=== PATIENT | female | born 1990 | race African-American/Black ===

== ENCOUNTER 2016-12-27 17:14 | Inpatient (IN) | payer OTHER ==
[~2016-12-27] VITALS: Ht 167.6 cm; Wt 47.2 kg
[2016-12-27 17:15] VITALS: BP 128/85
[2016-12-27 18:10] LABS: ABSOLUTE NEUTROPHILS 2.6 thou/uL (1.4-8.2); BASOPHILS 0.9 % (0.0-2.0); EOSINOPHILS 0.1 % (0.0-3.0); HEMATOCRIT 40.1 % (37.0-47.0); HEMOGLOBIN 14.3 gm/dL (12.0-15.0); LYMPHOCYTES 21.9 % (24.0-44.0); MCH 31.9 pg (26.0-34.0); MCHC 35.5 g/dL (28.0-37.0); MCV 89.9 fL (80.0-100.0); MONOCYTES 11.2 % (1.0-8.0); PLATELET COUNT 119 thou/uL (150-400); POLYS 65.9 % (36.0-66.0); RBC 4.46 mil/uL (4.20-5.00); RDW 14.2 % (10.5-14.5); WBC 3.9 thou/uL (4.0-11.0)
[2016-12-27 18:10] LABS: URINE BILIRUBIN 1+ (Negative); URINE BLOOD NEGATIVE (Negative); URINE COLOR YELLOW; URINE GLUCOSE-RANDOM* NEGATIVE (Negative); URINE KETONES 2+ (Negative); URINE NITRITE NEGATIVE (Negative); URINE PROTEIN (DIPSTICK) 1+ (Negative); URINE UROBILINOGEN >= 8.0 E.U./dl (0.2-1.0)
[2016-12-27 18:13] LABS: ICTOTEST (BILI CONFIRMATORY) Positive (Negative)
[2016-12-27 18:17] LABS: MANUAL DIFF NO
[2016-12-27 18:20] LABS: SQUAMOUS 0-3 Few /LPF (0-3)
[2016-12-27 18:21] LABS: AMORPHOUS PHOSPHATES Moderate /LPF (None Seen); CASTS None Seen /LPF (None Seen); URINE RBC None Seen /HPF (0-2); URINE WBC 0-5 Rare /HPF (0-5)
[2016-12-27 18:23] LABS: CALCIUM 10.2 mg/dL (8.5-10.1); CREATININE 0.6 mg/dL (0.6-1.0); POTASSIUM 3.4 mmol/L (3.5-5.1)
[2016-12-27 18:29] LABS: TOTAL BILIRUBIN 2.5 mg/dL (<0.1-1.0); TOTAL PROTEIN 7.1 g/dL (6.4-8.2)
[2016-12-27 18:36] LABS: LARGE PLATELETS SEVERAL
[2016-12-27 20:55] VITALS: BP 144/92
[2016-12-28 03:55] VITALS: BP 115/74
[2016-12-28 05:03] LABS: HEMATOCRIT 35.1 % (37.0-47.0); HEMOGLOBIN 12.6 gm/dL (12.0-15.0); MCH 32.4 pg (26.0-34.0); MCHC 35.9 g/dL (28.0-37.0); MCV 90.3 fL (80.0-100.0); RBC 3.88 mil/uL (4.20-5.00); RDW 14.1 % (10.5-14.5); WBC 5.2 thou/uL (4.0-11.0)
[2016-12-28 05:18] LABS: ALBUMIN 3.5 g/dL (3.4-5.0); CALCIUM 9.2 mg/dL (8.5-10.1); CREATININE 0.6 mg/dL (0.6-1.0); MAGNESIUM 1.6 mg/dL (1.8-2.4); POTASSIUM 3.1 mmol/L (3.5-5.1); TOTAL BILIRUBIN 2.2 mg/dL (<0.1-1.0)
[2016-12-28 07:45] VITALS: BP 111/81
[2016-12-28 16:05] VITALS: BP 126/93
[2016-12-28 19:27] VITALS: BP 130/81
[2016-12-29 05:49] VITALS: BP 111/65
[2016-12-29 06:49] LABS: ALBUMIN 3.5 g/dL (3.4-5.0); CREATININE 0.7 mg/dL (0.6-1.0); POTASSIUM 3.1 mmol/L (3.5-5.1); TOTAL BILIRUBIN 2.3 mg/dL (<0.1-1.0); TOTAL PROTEIN 6.4 g/dL (6.4-8.2)
[2016-12-29 07:05] VITALS: BP 1116/75
[2016-12-29] MEDS ORDERED: VITAMIN B-1100 M2 PO (09:56)
[2016-12-29] MEDS ORDERED: FOLIC ACID 1 MG1 MG PO (09:56)
[2016-12-29 11:15] VITALS: BP 1116/75
[2016-12-30 19:11] LABS: HEPATITIS C VIRUS AB <0.1 (0.0-0.9)
== END 2016-12-29 12:01 | disposition home or self-care (01) | DRG 440 ==
LOC: ER 17:14 → EROBS 19:39 → 4S 21:03
PROVIDERS: Hospitalist; Nurse Practitioner; Nurse Practitioner Family
DX: K85.20 Alcohol induced acute pancreatitis without necrosis or infection (principal); K70.10 Alcoholic hepatitis without ascites; F17.210 Nicotine dependence, cigarettes, uncomplicated; R74.0 Nonspecific elevation of levels of transaminase and lactic acid dehydrogenase [LDH]; F10.10 Alcohol abuse, uncomplicated; Z79.899 Other long term (current) drug therapy; Z83.3 Family history of diabetes mellitus; Z88.8 Allergy status to other drugs, medicaments and biological substances
CPT/HCPCS: 10195

== ENCOUNTER 2017-04-09 16:54 | Emergency (ER) | payer OTHER ==
[~2017-04-09] VITALS: Ht 167.6 cm; Wt 49.9 kg
[~2017-04-09 16:54] MED LIST: FOLIC ACID 1 MG1 MG PO; VITAMIN B-1100 M2 PO
[2017-04-09 17:16] LABS: URINE BILIRUBIN NEGATIVE (Negative); URINE BLOOD NEGATIVE (Negative); URINE CLARITY CLEAR; URINE COLOR YELLOW; URINE GLUCOSE-RANDOM* NEGATIVE (Negative); URINE KETONES TRACE (Negative); URINE LEUKOCYTES-REFLEX NEGATIVE (Negative); URINE NITRITE-REFLEX NEGATIVE (Negative); URINE PROTEIN (DIPSTICK) TRACE (Negative)
[2017-04-09 17:26] LABS: ABSOLUTE NEUTROPHILS 5.1 thou/uL (1.4-8.2); BASOPHILS 0.7 % (0.0-2.0); EOSINOPHILS 0.1 % (0.0-3.0); HEMATOCRIT 42.6 % (37.0-47.0); HEMOGLOBIN 15.4 gm/dL (12.0-15.0); LYMPHOCYTES 13.7 % (24.0-44.0); MCH 31.8 pg (26.0-34.0); MCHC 36.1 g/dL (28.0-37.0); MONOCYTES 5.1 % (1.0-8.0); POLYS 80.4 % (36.0-66.0); RBC 4.84 mil/uL (4.20-5.00); RDW 12.8 % (10.5-14.5); WBC 6.3 thou/uL (4.0-11.0)
[2017-04-09 17:36] LABS: CALCIUM 9.3 mg/dL (8.5-10.1); CREATININE 0.6 mg/dL (0.6-1.0); POTASSIUM 3.4 mmol/L (3.5-5.1)
[2017-04-09 17:43] LABS: ALBUMIN 3.9 g/dL (3.4-5.0); TOTAL BILIRUBIN 0.8 mg/dL (<0.1-1.0); TOTAL PROTEIN 7.4 g/dL (6.4-8.2)
[2017-04-09 18:03] LABS: ANISOCYTOSIS 1+; HYPOCHROMASIA SLIGHT; LARGE PLATELETS RARE; PLATELET COUNT 182 thou/uL (150-400)
[2017-04-09] MEDS ORDERED: ZOFRAN ODT8 MG PO (18:16)
[2017-04-09] MEDS ORDERED: PRILOSEC 20 MG20 MG PO (18:16)
[2017-04-09] MEDS ORDERED: TRAMADOL 50 MG50 MG PO (18:16)
[2017-04-09 18:20] LABS: AMP/METHAMP Negative (Negative); BARBITURATES Negative (Negative); BENZODIAZEPINES Negative (Negative); COCAINE Negative (Negative); METHADONE Negative (Negative); OPIATES Negative (Negative); PCP Negative (Negative)
[2017-04-09 19:24] VITALS: BP 111/68
== END 2017-04-09 19:26 | disposition home or self-care (01) ==
LOC: ER 16:54
PROVIDERS: Emergency Medicine
DX: K85.20 Alcohol induced acute pancreatitis without necrosis or infection (principal); K70.10 Alcoholic hepatitis without ascites; F10.10 Alcohol abuse, uncomplicated; F17.210 Nicotine dependence, cigarettes, uncomplicated; Z88.6 Allergy status to analgesic agent

== ENCOUNTER 2017-11-01 01:59 | Emergency (ER) | payer OTHER ==
[~2017-11-01] VITALS: Ht 167.6 cm; Wt 54.4 kg
[~2017-11-01 01:59] MED LIST changes: +PRILOSEC 20 MG20 MG PO; +TRAMADOL 50 MG50 MG PO; +ZOFRAN ODT8 MG PO
[2017-11-01 02:27] LABS: URINE BILIRUBIN NEGATIVE (Negative); URINE BLOOD 3+ (Negative); URINE CLARITY CLOUDY; URINE COLOR YELLOW; URINE GLUCOSE-RANDOM* NEGATIVE (Negative); URINE KETONES NEGATIVE (Negative); URINE LEUKOCYTES NEGATIVE (Negative); URINE NITRITE NEGATIVE (Negative); URINE PROTEIN (DIPSTICK) TRACE (Negative); URINE SPECIFIC GRAVITY 1.015 (1.005-1.035); URINE UROBILINOGEN 0.2 E.U./dl (0.2-1.0)
[2017-11-01] MEDS ORDERED: [UNRECOGNIZED DRUG - REMARK] (02:31)
[2017-11-01] MEDS ORDERED: TRAZODONE 150150 M1 PO (02:32)
[2017-11-01] MEDS ORDERED: IBUPROFEN 400400 M2 PO (02:35)
[2017-11-01 02:36] LABS: AMORPHOUS PHOSPHATES Many /LPF (None Seen); BACTERIA 1-9 Few /HPF (None Seen); CASTS None Seen /LPF (None Seen); MUCUS 4-6 Moderate strn/LPF (None Seen); SQUAMOUS 4-10 Moderate /LPF (0-3); URINE RBC >20 Many /HPF (0-2); URINE WBC 6-15 Few /HPF (0-5)
== END 2017-11-01 07:54 | disposition home or self-care (01) ==
LOC: ER 01:59
PROVIDERS: Emergency Medicine
DX: M94.0 Chondrocostal junction syndrome [Tietze] (principal); F17.210 Nicotine dependence, cigarettes, uncomplicated; Z88.8 Allergy status to other drugs, medicaments and biological substances

== ENCOUNTER 2018-06-27 22:14 | Emergency (ER) | payer OTHER ==
[~2018-06-27] VITALS: Ht 167.6 cm; Wt 54.4 kg
[~2018-06-27 22:14] MED LIST changes: +IBUPROFEN 400400 M2 PO; +TRAZODONE 150150 M1 PO; +[UNRECOGNIZED DRUG - REMARK]
[2018-06-27 23:25] LABS: BASOPHILS 0.9 % (0.0-2.0); EOSINOPHILS 0.1 % (0.0-3.0); HEMOGLOBIN 14.5 gm/dL (12.0-15.0); LYMPHOCYTES 29.8 % (24.0-44.0); MCH 30.1 pg (26.0-34.0); MCHC 36.2 g/dL (28.0-37.0); MCV 83.1 fL (80.0-100.0); PLATELET COUNT 65 thou/uL (150-400); POLYS 61.2 % (36.0-66.0); RBC 4.81 mil/uL (4.20-5.00); RDW 15.6 % (10.5-14.5); WBC 3.2 thou/uL (4.0-11.0)
[2018-06-27 23:26] LABS: CALCIUM 8.7 mg/dL (8.5-10.1); CREATININE 0.6 mg/dL (0.6-1.0)
[2018-06-27 23:32] LABS: ALBUMIN 4.2 g/dL (3.4-5.0); DIRECT BILIRUBIN 0.3 mg/dL (<0.1-0.3); TOTAL BILIRUBIN 0.7 mg/dL (<0.1-1.0); TOTAL PROTEIN 8.1 g/dL (6.4-8.2)
[2018-06-27 23:42] LABS: URINE BILIRUBIN NEGATIVE (Negative); URINE BLOOD NEGATIVE (Negative); URINE CLARITY CLEAR; URINE COLOR YELLOW; URINE GLUCOSE-RANDOM* TRACE (Negative); URINE KETONES 1+ (Negative); URINE LEUKOCYTES-REFLEX NEGATIVE (Negative); URINE NITRITE-REFLEX NEGATIVE (Negative); URINE PROTEIN (DIPSTICK) TRACE (Negative)
[2018-06-28 00:04] LABS: AMP/METHAMP Negative (Negative); BARBITURATES Negative (Negative); BENZODIAZEPINES Negative (Negative); COCAINE Negative (Negative); METHADONE Negative (Negative); OPIATES Negative (Negative); PCP Negative (Negative)
[2018-06-28] MEDS ORDERED: CHLORDIAZEPOXID25 M1 PO (04:08)
[2018-06-28] MEDS ORDERED: ZOFRAN ODT4 MG PO (04:08)
[2018-06-28 04:31] VITALS: BP 112/60
== END 2018-06-28 04:33 | disposition home or self-care (01) ==
LOC: ER 22:14
PROVIDERS: Emergency Medicine
DX: E87.2 Acidosis (principal); F10.10 Alcohol abuse, uncomplicated; Y90.8 Blood alcohol level of 240 mg/100 ml or more; R10.32 Left lower quadrant pain; R11.2 Nausea with vomiting, unspecified; F17.210 Nicotine dependence, cigarettes, uncomplicated; Z88.5 Allergy status to narcotic agent

== ENCOUNTER 2018-09-04 12:49 | Emergency (ER) | payer OTHER ==
[~2018-09-04] VITALS: Ht 167.6 cm; Wt 54.4 kg
[~2018-09-04 12:49] MED LIST changes: +CHLORDIAZEPOXID25 M1 PO; +ZOFRAN ODT4 MG PO
[2018-09-04 14:12] LABS: ABSOLUTE NEUTROPHILS 2.2 thou/uL (1.4-8.2); BASOPHILS 2.5 % (0.0-2.0); HEMATOCRIT 42.6 % (37.0-47.0); HEMOGLOBIN 15.2 gm/dL (12.0-15.0); LYMPHOCYTES 21.9 % (24.0-44.0); MCH 31.4 pg (26.0-34.0); MCHC 35.6 g/dL (28.0-37.0); MONOCYTES 7.4 % (1.0-8.0); POLYS 68.2 % (36.0-66.0); RBC 4.84 mil/uL (4.20-5.00); RDW 15.3 % (10.5-14.5); WBC 3.2 thou/uL (4.0-11.0)
[2018-09-04 14:22] LABS: CALCIUM 9.7 mg/dL (8.5-10.1); CREATININE 0.6 mg/dL (0.6-1.0); POTASSIUM 3.1 mmol/L (3.5-5.1)
[2018-09-04 14:29] LABS: ALBUMIN 4.5 g/dL (3.4-5.0); TOTAL BILIRUBIN 1.7 mg/dL (<0.1-1.0); TOTAL PROTEIN 8.4 g/dL (6.4-8.2)
[2018-09-04 14:48] LABS: LARGE PLATELETS SEVERAL; PLATELET COUNT 178 thou/uL (150-400)
[2018-09-04 14:54] LABS: URINE BILIRUBIN NEGATIVE (Negative); URINE BLOOD 1+ (Negative); URINE CLARITY CLEAR; URINE COLOR YELLOW; URINE GLUCOSE-RANDOM* NEGATIVE (Negative); URINE KETONES 1+ (Negative); URINE LEUKOCYTES-REFLEX NEGATIVE (Negative); URINE NITRITE-REFLEX NEGATIVE (Negative); URINE PROTEIN (DIPSTICK) TRACE (Negative); URINE SPECIFIC GRAVITY <= 1.005 (1.005-1.035)
[2018-09-04 15:01] LABS: AMP/METHAMP Negative (Negative); BARBITURATES Negative (Negative); BENZODIAZEPINES Negative (Negative); COCAINE Negative (Negative); METHADONE Negative (Negative); OPIATES Negative (Negative); PCP Negative (Negative)
[2018-09-04 15:07] LABS: BACTERIA-REFLEX 1-9 Few /HPF (None Seen); CASTS None Seen /LPF (None Seen); CRYSTALS None Seen /LPF (None Seen); SQUAMOUS 0-3 Few /LPF (0-3); URINE RBC None Seen /HPF (0-2); URINE WBC-REFLEX 0-5 Rare /HPF (0-5)
[2018-09-04 19:45] VITALS: BP 105/65
== END 2018-09-04 19:46 | disposition home or self-care (01) ==
LOC: ER 12:49
PROVIDERS: Physician Assistant
DX: F10.129 Alcohol abuse with intoxication, unspecified (principal); K85.90 Acute pancreatitis without necrosis or infection, unspecified; R74.0 Nonspecific elevation of levels of transaminase and lactic acid dehydrogenase [LDH]; F17.210 Nicotine dependence, cigarettes, uncomplicated; Z88.5 Allergy status to narcotic agent

== ENCOUNTER 2019-05-01 18:12 | Inpatient (IN) | payer OTHER ==
[~2019-05-01] VITALS: Ht 167.6 cm; Wt 56.2 kg
[2019-05-01 18:14] VITALS: BP 110/62
[2019-05-01 19:06] LABS: ABSOLUTE NEUTROPHILS 2.8 thou/uL (1.4-8.2); BASOPHILS 1.1 % (0.0-2.0); EOSINOPHILS 0.1 % (0.0-3.0); HEMATOCRIT 31.3 % (37.0-47.0); LYMPHOCYTES 19.1 % (24.0-44.0); MCH 29.7 pg (26.0-34.0); MCHC 35.3 g/dL (28.0-37.0); MCV 84.2 fL (80.0-100.0); MONOCYTES 5.7 % (1.0-8.0); PLATELET COUNT 70 thou/uL (150-400); RBC 3.72 mil/uL (4.20-5.00); WBC 3.8 thou/uL (4.0-11.0)
[2019-05-01 19:17] LABS: ALBUMIN 3.5 g/dL (3.4-5.0); CALCIUM 8.1 mg/dL (8.5-10.1); CREATININE 0.5 mg/dL (0.6-1.0); TOTAL BILIRUBIN 2.2 mg/dL (<0.1-1.0); TOTAL PROTEIN 7.8 g/dL (6.4-8.2)
[2019-05-01 19:19] LABS: POTASSIUM 2.7 mmol/L (3.5-5.1)
[2019-05-01 21:00] VITALS: BP 111/69
[2019-05-01 21:34] VITALS: BP 118/65
[2019-05-01 23:54] LABS: MAGNESIUM 1.4 mg/dL (1.8-2.4); PHOSPHORUS 1.9 mg/dL (2.5-4.9)
[2019-05-02 00:57] LABS: FOLIC ACID 54.1 ng/mL (8.6-58.9)
[2019-05-02 04:11] LABS: URINE BILIRUBIN 1+ (Negative); URINE BLOOD NEGATIVE (Negative); URINE CLARITY CLEAR; URINE COLOR YELLOW; URINE GLUCOSE-RANDOM* 2+ (Negative); URINE KETONES 1+ (Negative); URINE LEUKOCYTES-REFLEX NEGATIVE (Negative); URINE NITRITE-REFLEX NEGATIVE (Negative); URINE PROTEIN (DIPSTICK) TRACE (Negative)
[2019-05-02 04:13] LABS: ICTOTEST (BILI CONFIRMATORY) Positive (Negative)
[2019-05-02 04:34] LABS: AMP/METHAMP Negative (Negative); BARBITURATES Negative (Negative); BENZODIAZEPINES POSITIVE (Negative); COCAINE Negative (Negative); METHADONE Negative (Negative); OPIATES Negative (Negative); PCP Negative (Negative)
[2019-05-02 05:02] VITALS: BP 114/68
--- NOTE | 2019-05-02 08:01 | NUR ---
PT ARRIVED FROM ED AT 2150. PT ALERT AND ORIENTED X4. PT ABLE TO AMBULATE WITHOUT DIFFUCULTY. PT HAS BEEN C/O ABDOMINAL AND BACK PAIN. PT NSR ON MONITOR. ULTRAM GIVEN FOR PAIN WITH MILD RELIEVE.
[2019-05-02 08:05] VITALS: BP 125/68
[2019-05-02 11:35] VITALS: BP 105/56
[2019-05-02 16:20] VITALS: BP 114/62
--- NOTE | 2019-05-02 17:35 | NUR ---
RECEIVED PT'S CARE AROUND 0740; PT. ON BED; AOX4; TREMORS NOTABLE & HR ON THE 110s; IV LOREZAPAM GIVEN; NO ETOH PROTOCOL ORDERS; PHYSICIAN NOTIFIED DURING ROUNDING; DIET CHANGED TO NPO; PT. EDUCATED ABOUT IT; ST. UNDERSTANDING; VOMIT ONCE EARLY ON THE MORNING AFTER GIVEN AM MEDICATIONS; C/O NAUSEA; NO PRN MEDICATION DUE; GONE FOR CT AROUND 1100; EARLY ON THE AFTERNOON PT. ST. NOT HAVING N/V WANTED TO KNOW IF CAN HAVE SOMETHING TO DRINK; EDUCATED ABOUT THE REASON BEHIND BEING NPO; ST. UNDERSTANDING; ST. FEELING ANXIOUS DURING THE AFTERNOON; TREMORS PRESENT; PRN IV MEDICATION GIVEN; EDUCATED ABOUT FALL PRECAUTIONS; ST. UNDERSTANDING; SR ON THE MONITOR; ASSESSMENT CHARGED; FOLLOWING POC; WILL PASS ON REPORT;
[2019-05-02 20:05] VITALS: BP 113/67
[2019-05-03 05:13] VITALS: BP 106/60
[2019-05-03 06:07] LABS: HEMOGLOBIN 9.2 gm/dL (12.0-15.0); WBC 2.8 thou/uL (4.0-11.0)
[2019-05-03 06:09] LABS: HEMATOCRIT 26.9 % (37.0-47.0); MCH 29.3 pg (26.0-34.0); MCHC 34.2 g/dL (28.0-37.0); MCV 85.8 fL (80.0-100.0); RBC 3.13 mil/uL (4.20-5.00); RDW 16.1 % (10.5-14.5)
[2019-05-03 06:28] LABS: ALBUMIN 2.8 g/dL (3.4-5.0); CALCIUM 8.2 mg/dL (8.5-10.1); CREATININE 0.4 mg/dL (0.6-1.0); PHOSPHORUS 1.8 mg/dL (2.5-4.9); POTASSIUM 3.5 mmol/L (3.5-5.1); TOTAL BILIRUBIN 4.3 mg/dL (<0.1-1.0)
[2019-05-03 06:30] LABS: TOTAL PROTEIN 6.2 g/dL (6.4-8.2)
[2019-05-03 06:33] LABS: MAGNESIUM 0.9 mg/dL (1.8-2.4)
[2019-05-03 07:50] VITALS: BP 111/70
[2019-05-03 11:30] VITALS: BP 113/71
[2019-05-03] MEDS ORDERED: NEURONTIN 300300 M1 PO (12:23)
[2019-05-03 12:26] LABS: CALCIUM 8.5 mg/dL (8.5-10.1); CREATININE 0.4 mg/dL (0.6-1.0); POTASSIUM 3.3 mmol/L (3.5-5.1)
[2019-05-03 12:45] VITALS: BP 113/71
--- NOTE | 2019-05-03 13:36 | NUR ---
ASSESSMENT CHARTED. PT ALERT AND ORIENTED. VSS. DENIED HAVING PAIN OR DISCOMFORT. DENIES HAVING NAUSEA. HAD LOW MAG. NEW ORDERS NOTED. ORDERS GIVEN TO DISCHARGE PT TO HOME. DISCHARGE INSTRUCTIONS GIVEN TO PT. PT VERBERLISED UNDERSTANDING.
--- NOTE | 2019-05-03 15:03 | NUR ---
patient to dc today. She plans f/u with [facility]. Vouched for her gapapintin in outpatient pharmacy for $11.15.
== END 2019-05-03 13:39 | disposition home or self-care (01) | DRG 433 ==
LOC: ER 18:12 → EROBS 20:33 → 2N 21:34 → ENTRNSPT 05-03 13:01 → EDTRNSPTSTS 05-03 13:05 → 2N 05-03 13:39
PROVIDERS: Nurse Practitioner Family; ADMIT Internal Medicine
DX: K70.10 Alcoholic hepatitis without ascites (principal); F10.239 Alcohol dependence with withdrawal, unspecified; K86.1 Other chronic pancreatitis; Y90.9 Presence of alcohol in blood, level not specified; E87.6 Hypokalemia; D69.6 Thrombocytopenia, unspecified; F41.9 Anxiety disorder, unspecified; F32.9 Major depressive disorder, single episode, unspecified; F10.20 Alcohol dependence, uncomplicated; F17.210 Nicotine dependence, cigarettes, uncomplicated; F10.229 Alcohol dependence with intoxication, unspecified; E83.42 Hypomagnesemia; Z88.8 Allergy status to other drugs, medicaments and biological substances; Z83.3 Family history of diabetes mellitus; Z71.41 Alcohol abuse counseling and surveillance of alcoholic; Z91.19 Patient's noncompliance with other medical treatment and regimen
CPT/HCPCS: 10081